=== PATIENT | male | born 1960 | race African-American/Black ===

== ENCOUNTER 2017-10-17 07:28 | Inpatient (IN) | payer OTHER ==
--- NOTE | 2017-10-14 08:56 | Diagnostic Imaging Report ---
PROCEDURE:CHEST 2 VIEWS TECHNIQUE:PA and lateral chest INDICATION:Preoperative evaluation for knee surgery COMPARISON:None. FINDINGS: Low lung volume with bibasilar subsegmental atelectasis. Mild cardiomegaly and tortuous thoracic aorta. Mildly prominent central vasculature. Intact skeleton. CONCLUSION: Mild cardiomegaly and central vascular congestion. Dictated by: Domingo Torres M.D. on 10/14/2017 at 8:56 Electronically approved by: Domingo Torres M.D. on 10/14/2017 at 8:56
[2017-10-14 09:00] LABS: BASOPHILS # (AUTO) 0.1 (0.0-0.1); BASOPHILS % 0.7 % (0.0-1.0); EOSINOPHILS # (AUTO) 0.3 (0.0-0.4); EOSINOPHILS % 3.9 % (0.0-6.0); HEMATOCRIT 43.5 % (38.2-49.6); HEMOGLOBIN 14.9 g/dL (14.0-18.0); LYMPHOCYTES # (AUTO) 1.6 (1.0-3.2); MEAN CORPUSCULAR HGB CONC 34.3 g/dL (31-35); MEAN CORPUSCULAR VOLUME 84.6 fL (81-99); MONOCYTES % 11.5 % (4.4-11.3); NEUTROPHILS # (AUTO) 5.5 (2.1-6.9); NEUTROPHILS % 64.4 % (38.7-80.0); PLATELET COUNT 215 x10e3/uL (140-360); RED BLOOD COUNT 5.14 x10e6/uL (4.3-5.7); RED CELL DISTRIBUTION WIDTH 14.8 % (11.7-14.4)
[2017-10-14 09:19] LABS: ANION GAP 14.6 mmol/L (8-16); BLOOD UREA NITROGEN 16 mg/dL (7-26); BUN/CREATININE RATIO 16 (6-25); CALCIUM 10.1 mg/dL (8.4-10.2); CARBON DIOXIDE 30 mmol/L (22-29); CHLORIDE 98 mmol/L (98-107); CREATININE, SERUM 1.03 mg/dL (0.72-1.25); EST GLOMERULAR FILTRATION RATE > 60 ML/MIN (60-); GLUCOSE 103 mg/dL (74-118); POTASSIUM 4.6 mmol/L (3.5-5.1); SODIUM 138 mmol/L (136-145)
[~2017-10-17] VITALS: Ht 167.6 cm; Wt 123.4 kg
[~2017-10-17 07:28] MED LIST: AMLODIPINE BESYL5 MG PO; ASPIRIN325 MG PO; ASPIRIN81 MG; BACITRACIN 50,000 UNIT VIAL ONE; CEFAZOLIN SOD 2 GM/D5W 50ML 50 ML IV ONE; CELECOXIB 200 MG CAP ONE; CETIRIZINE HCL10 MG; COMBIVENT RESPIM4 GM IH; CRESTOR10 MG PO; DEXAMETHASONE SOD PHOS 10 MG/1 ML VIAL ONE; GABAPENTIN 300 MG CAP ONE; HYDROCHLOROTHIA25 MG PO; LISINOPRIL10 MG PO; MONTELUKAST SOD10 MG PO; MUPIROCIN 2% OINT 22 GM TUBE ONE; PREDNISONE20 MG PO; PROAIR HFA INH8.5 GM; ROPIVACAINE 246.25 MG, EPINEPHRINE HCL 1:1000 0.5 MG, CLONIDINE HCL 0.08 MG, KETOROLAC ... INJ ONE; TRANEXAMIC ACID 1,000 MG/10 ML ML ONE; ULTRAM50 MG PO; ZETIA10 MG PO
[2017-10-17] MEDS: SODIUM CHLORIDE 0.9% 1000ML 1,000 ML IV SCH ×2 (09:37→19:37)
[2017-10-17] MEDS ORDERED: HYDROCODONE/APAP 5MG-325MG TAB PO PRN (09:45)
[2017-10-17] MEDS ORDERED: ACETAMINOPHEN 650 MG SUPP PR PRN (09:45)
[2017-10-17] MEDS ORDERED: HYDROCODONE/APAP 7.5MG-325MG 1 EA TAB PO PRN (09:45)
[2017-10-17] MEDS ORDERED: PROMETHAZINE HCL (IM) 25 MG/ML VIAL IM PRN (09:45)
[2017-10-17] MEDS ORDERED: DIPHENHYDRAMINE HCL INJ 50 MG/ML VIAL IM/IV PRN (09:45)
[2017-10-17] MEDS ORDERED: DOCUSATE SODIUM 100 MG CAP PO PRN (09:45)
[2017-10-17] MEDS ORDERED: KETOROLAC TROMETHAMINE 30 MG/ML VIAL IV PRN (09:45)
--- NOTE | 2017-10-17 11:04 | Diagnostic Imaging Report ---
PROCEDURE: X-RAY LEFT KNEE, ONE OR TWO VIEWS COMPARISON: None. INDICATIONS:POST OP KNEE FINDINGS: 2 portable views of the left knee (AP and lateral). See conclusion. CONCLUSION: Status post total left total knee replacement with surrounding soft tissue swelling, air and rasheeda consistent with recent surgery. No acute fractures. Dictated by: Wili Deutsch M.D. on 10/17/2017 at 11:03 Electronically approved by: Wili Deutsch M.D. on 10/17/2017 at 11:03
[2017-10-17 11:36] VITALS: BP 106/58
[2017-10-17 12:04] VITALS: BP 106/58
[2017-10-17] MEDS: ACETAMINOPHEN 1000 MG/100 ML IV SCH ×2 (12:04→17:36)
[2017-10-17] MEDS ORDERED: PROPOFOL IV EMULSION 10 MG/ML 20 ML VIAL ONE (13:23)
[2017-10-17] MEDS ORDERED: ONDANSETRON HCL INJ 2 MG/ML VIAL ONE (13:23)
[2017-10-17] MEDS ORDERED: EPHEDRINE SULFATE INJ 50 MG/10 ML SYR ONE (13:23)
[2017-10-17] MEDS ORDERED: SEVOFLURANE INHAL SOLN 250 ML PEN BTL ONE (13:23)
[2017-10-17] MEDS ORDERED: LIDOCAINE HCL 2% LOCAL INJ 5 ML SDV VIAL INJ ONE (13:23)
[2017-10-17] MEDS ORDERED: ROPIVACAINE 0.5% 5 MG/ML 30 ML SDV ONE (13:59)
[2017-10-17] MEDS ORDERED: LIDOCAINE 2% /EPINEPHRINE 20 ML SDV INJ ONE (13:59)
[2017-10-17] MEDS ORDERED: CEFAZOLIN SOD 1 GM/NS 50ML 50 ML IV SCH (14:00)
[2017-10-17] MEDS: ONDANSETRON HCL INJ 2 MG/ML VIAL IV PRN (14:36)
[2017-10-17] MEDS ORDERED: MIDAZOLAM HCL 2 MG/2 ML VIAL ONE (14:39)
[2017-10-17] MEDS ORDERED: FENTANYL CITRATE/PF 100MCG/2 ML INJ ONE (14:39)
[2017-10-17] MEDS ORDERED: MORPHINE SULFATE INJ 10 MG/ML ONE (14:39)
[2017-10-17 15:39] VITALS: BP 110/56
[2017-10-17] MEDS: ASPIRIN 325 MG TAB PO SCH (16:20)
[2017-10-17] MEDS: CEFAZOLIN SOD 1 GM VIAL IV SCH (16:20)
[2017-10-17] MEDS: CELECOXIB 100 MG CAP PO SCH (16:20)
[2017-10-17 20:00] VITALS: BP 115/60
[2017-10-17 20:15] VITALS: BP 115/60
[2017-10-17] MEDS ORDERED: ZOLPIDEM TARTRATE 5 MG TAB PO PRN (21:00)
[2017-10-18] VITALS: BP 112/59
[2017-10-18] MEDS: ACETAMINOPHEN 1000 MG/100 ML IV SCH ×2 (01:00→06:42)
[2017-10-18] MEDS: CEFAZOLIN SOD 1 GM VIAL IV SCH ×2 (01:00→07:48)
[2017-10-18 04:00] VITALS: BP 112/58
[2017-10-18] MEDS: SODIUM CHLORIDE 0.9% 1000ML 1,000 ML IV SCH (05:37)
[2017-10-18 07:12] LABS: HEMATOCRIT 38.9 % (38.2-49.6)
[2017-10-18 07:39] VITALS: BP 128/64
[2017-10-18 07:40] VITALS: BP 128/64
[2017-10-18] MEDS: CELECOXIB 100 MG CAP PO SCH (07:48)
[2017-10-18] MEDS: ASPIRIN 325 MG TAB PO SCH (07:48)
[2017-10-18] MEDS ORDERED: ACETAMINOPHEN 1000 MG/100 ML IV PRN (09:45)
[2017-10-18 11:53] VITALS: BP 113/59
[2017-10-18] MEDS ORDERED: ASPIRIN325 MG PO (12:29)
[2017-10-18] MEDS: ONDANSETRON HCL INJ 2 MG/ML VIAL IV PRN (14:10)
--- NOTE | 2017-10-18 14:22 | Operative Report ---
DATE OF PROCEDURE: October 17, 2017 EXPERIMENTAL MACHINIST: Thomas Proctor PA-C The patient was brought to the operating room for induction of anesthesia. Throughout this case, my PA's assistance was necessary for retraction of soft tissue and positioning of the extremity. This allows for efficient and technically successful execution of the operation and is considered medically necessary. PREOPERATIVE DIAGNOSIS: Osteoarthritis left knee. POSTOPERATIVE DIAGNOSIS: Osteoarthritis left knee. PROCEDURE: Left total knee arthroplasty. INDICATIONS: The patient is a 57-year-old gentleman with end-stage arthritis in his left knee. He has failed conservative management and would like to proceed with a left total knee replacement. The risks and benefits have been discussed. He is familiar with the procedure. He has had his right knee replaced. He states he understands and wishes to proceed. DESCRIPTION OF PROCEDURE: The patient was brought to the operating room and placed under general anesthetic. He received a regional block, prophylactic antibiotics and tranexamic acid in the holding area. His left lower extremity was prepped and draped in a sterile manner. A preoperative time out was performed. The extremity was exsanguinated, and a proximal tourniquet was inflated to 300 mmHg. An anterior incision with a medial parapatellar arthrotomy was performed. Clear synovial fluid was removed from the joint. Complete loss of articular cartilage down to polished subchondral bone, particularly involving the lateral aspect of the trochlear groove and entire lateral femoral condyle, was observed. Soft-tissue releases were performed to bring the knee up into flexion with the patella everted. The remnant of the cruciate ligaments was sacrificed. A Santos and Nephew Edel II posterior stabilized knee system was used. The cruciate ligaments were removed. Meniscal remnants were removed. Marginal osteophytes were incised. An extramedullary cutting guide was used to resect the proximal tibia. The tibial baseplate was a size number 7. The central fin punch was impacted, and attention was directed towards the distal femur. An intramedullary cutting guide was used to resect the distal femur in 6 degrees of valgus and rotation referenced off of a combination of landmarks including Stacia's line, the epicondylar axis and the posterior condyles. The femoral component was also a size number 7. The anterior and posterior chamfer cuts were made. Trial reductions were performed. A 9 mm ultracongruent tibial insert provided appropriate soft-tissue balancing in flexion and extension. The patella thickness was only 15 mm. The patella was gently debrided and contoured down to a flat surface of subchondral bone. A 7.5 mm patellar button increased the patellar thickness to approximately 23 mm. Patellar tracking was noted to be concentric. The trial implants were then all removed. A 100 mL premixed pericapsular EVETTE injection was placed into the soft tissue. A large subchondral cyst in the posterior central aspect of the tibia was debrided and impaction grafted with autologous cancellous bone. The components were then cemented into place after thoroughly irrigating the knee with a Pulsavac. A single mix of Palacos cement pre-loaded with antibiotics was used to cement the components. Care was taken to remove all extravasated cement. The wound was further irrigated while the cement cured. The arthrotomy was then closed with interrupted number 1 Ethibond. The knee was put through flexion after each stitch to ensure a secure closure. The skin was closed with subcuticular Vicryl and rasheeda. A sterile bandage was applied. The patient was extubated and transported to the recovery room in stable condition. Blood loss was minimal, and all needle and sponge counts were correct. Job#: [id number]
== END 2017-10-18 14:44 | disposition home health service (06) | DRG 470 ==
LOC: OR 07:28 → INTOOBSV 10:34 → MED/SURG 10:34 → OBSVTOIN 10:34 → INTOOBSV 10-18 10:10
PROVIDERS: ADMIT Specialist; ATTEND Specialist
PROC: 0SRD0J9 Replacement of Left Knee Joint with Synthetic Substitute, Cemented, Open Approach (ICD-10-PCS; principal; 2017-10-17 09:00)
DX: M17.0 Bilateral primary osteoarthritis of knee (principal); I10 Essential (primary) hypertension; Z96.651 Presence of right artificial knee joint; D64.9 Anemia, unspecified
CPT/HCPCS: 36415; 71046; 80048; 85014; 85018; 85025; 86850; 86900; 86920; 93005; J0171; J0690; J1100; J1885; J2001; J2250; J2270; J2405; J2795

== ENCOUNTER 2019-05-22 09:58 | Outpatient (RCR) | payer OTHER ==
[~2019-05-22 09:58] MED LIST changes: -BACITRACIN 50,000 UNIT VIAL ONE; -CEFAZOLIN SOD 2 GM/D5W 50ML 50 ML IV ONE; -CELECOXIB 200 MG CAP ONE; -DEXAMETHASONE SOD PHOS 10 MG/1 ML VIAL ONE; -GABAPENTIN 300 MG CAP ONE; -MUPIROCIN 2% OINT 22 GM TUBE ONE; -ROPIVACAINE 246.25 MG, EPINEPHRINE HCL 1:1000 0.5 MG, CLONIDINE HCL 0.08 MG, KETOROLAC ... INJ ONE; -TRANEXAMIC ACID 1,000 MG/10 ML ML ONE
== END 2019-05-28 ==
LOC: PT 09:58
PROVIDERS: ATTEND Specialist
DX: Z96.653 Presence of artificial knee joint, bilateral (principal); M62.81 Muscle weakness (generalized); R26.2 Difficulty in walking, not elsewhere classified; M25.562 Pain in left knee; M25.561 Pain in right knee

== ENCOUNTER 2019-06-15 09:55 | Outpatient (RCR) | payer OTHER | END 2019-06-28 | LOC: PT 09:55 | PROVIDERS: ATTEND Specialist | DX: Z96.653 Presence of artificial knee joint, bilateral (principal); M25.562 Pain in left knee; M25.561 Pain in right knee; M62.81 Muscle weakness (generalized); R26.2 Difficulty in walking, not elsewhere classified ==

== ENCOUNTER 2019-07-20 10:50 | Outpatient (RCR) | payer OTHER | END 2019-07-28 | LOC: PT 10:50 | PROVIDERS: ATTEND Specialist | DX: Z96.653 Presence of artificial knee joint, bilateral (principal); Z47.1 Aftercare following joint replacement surgery; M25.562 Pain in left knee; M25.561 Pain in right knee; M62.81 Muscle weakness (generalized); R26.2 Difficulty in walking, not elsewhere classified ==